=== PATIENT | male | born 2000 | race Caucasian/White ===

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

== ENCOUNTER 2019-03-12 13:17 | Emergency (ER) | payer SELFPAY ==
--- NOTE | 2019-03-12 13:39 | ER ---
Nurse's Notes [facility] Name: Eusebia Harrell Age: 18 yrs Sex: Male : 2000 Arrival Date: 03/12/2019 Time: 13:21 Bed 17 Private MD: None, None Diagnosis: Vomiting, unspecified Presentation: 03/12 13:23 Presenting complaint: Patient states: i started feeling nauseous this morning and hj vomited once; denies abd pain, diarrhea, or constipation; reports, pt was sent home and needs a medical clearance to go back to work;. Transition of care: patient was not received from another setting of care. Onset of symptoms was March 12, 2019. Risk Assessment: Do you want to hurt yourself or someone else? Patient reports no desire to harm self or others. Initial Sepsis Screen: Does the patient meet any 2 criteria? No. Patient's initial sepsis screen is negative. Does the patient have a suspected source of infection? No. Patient's initial sepsis screen is negative. Care prior to arrival: None. 13:23 Method Of Arrival: Ambulatory 13:23 Acuity: JORGE 4 hj Triage Assessment: 13:54 General: Behavior is. ca1 Historical: - Allergies: 13:25 No Known Allergies; hj - PMHx: 13:25 None; hj - PSHx: 13:25 None; hj - Immunization history:: Adult Immunizations up to date. - Family history:: not pertinent. - Social history:: Smoking status: Patient/guardian denies using tobacco. - Ebola Screening: : No symptoms or risks identified at this time. - Hospitalizations: : No recent hospitalization is reported. Screenin:40 Abuse screen: Denies threats or abuse. Denies injuries from another. Nutritional ca1 screening: No deficits noted. Tuberculosis screening: No symptoms or risk factors identified. Fall Risk None identified. Assessment: 13:40 General: Appears in no apparent distress. comfortable. Pain: Denies pain. Neuro: Level ca1 of Consciousness is awake, alert, obeys commands, Oriented to person, place, time, situation. Cardiovascular: Heart tones S1 S2 present Capillary refill < 3 seconds Patient's skin is warm and dry. Respiratory: Airway is patent Respiratory effort is even, unlabored, Respiratory pattern is regular, symmetrical, Breath sounds are clear bilaterally. GI: Abdomen is round non-distended, Bowel sounds present X 4 quads. Abd is soft and non tender X 4 quads. Reports vomiting, once this morning at around 0700. : No deficits noted. No signs and/or symptoms were reported regarding the genitourinary system. EENT: No deficits noted. No signs and/or symptoms were reported regarding the EENT system. Derm: Skin is intact, is healthy with good turgor, Skin is pink, warm \T\ dry. Musculoskeletal: Circulation, motion, and sensation intact. Capillary refill < 3 seconds, Range of motion: intact in all extremities. Vital Signs: 13:25 BP 113 / 57; Pulse 82; Resp 18; Temp 99.3(O); Pulse Ox 100% on R/A; Weight 131.54 kg; hj Height 6 ft. 1 in. (185.42 cm); Pain 0/10; 13:25 Body Mass Index 38.26 (131.54 kg, 185.42 cm) ED Course: 13:21 Patient arrived in ED. dl4 13:22 None, None is Private Physician. dl4 13:25 Triage completed. hj 13:25 Arm band placed on right wrist. hj 13:28 Karson Bush MD is Attending Physician. rn 13:40 Patient has correct armband on for positive identification. Bed in low position. Call ca1 light in reach. Side rails up X 1. Pulse ox on. NIBP on. Warm blanket given. 13:51 Margie Jose RN is Primary Nurse. ca1 13:54 No provider procedures requiring assistance completed. Patient did not have IV access ca1 during this emergency room visit. Administered Medications: No medications were administered Outcome: 13:39 Discharge ordered by . rn 13:54 Discharged to home ambulatory. ca1 13:54 Condition: stable 13:54 Discharge instructions given to patient, Instructed on discharge instructions, follow up and referral plans. Demonstrated understanding of instructions, follow-up care, medications, Prescriptions given X 1. 13:55 Patient left the ED. ca1 Signatures: Karson Bush MD MD rn Joaquin, Henry, RN RN hj Luna, David dl4 Margie Jose RN RN ca1 Corrections: (The following items were deleted from the chart) 13:27 13:25 Pulse 82bpm; Resp 18bpm; Pulse Ox 100% RA; Temp 99.3F Oral; 131.54 kg; Height 6 hj ft. 1 in.; BMI: 38.2; Pain 0/10; hj
--- NOTE | 2019-03-12 13:39 | EDPHYS ---
Physician Documentation [facility] Name: Eusebia Harrell Age: 18 yrs Sex: Male : 2000 Arrival Date: 03/12/2019 Time: 13:21 Bed 17 Private MD: None, None ED Physician Karson Bush HPI: 03/12 13:36 This 18 yrs old Male presents to ER via Ambulatory with complaints of rn Vomiting. 13:36 The patient presents to the emergency department with nausea, vomiting. Onset: The rn symptoms/episode began/occurred this morning. Possible causes: unknown. The symptoms are aggravated by nothing. The symptoms are alleviated by nothing. Severity of symptoms: At their worst the symptoms were mild in the emergency department the symptoms have resolved. The patient has experienced similar episodes in the past. Reports at work, cleared his throat, threw up, told to go home and seek medical clearance. Denies any more nausea/abd pain/diarrhea. No chest pain/sob/syncope/headache/fever. States here just for clearance paperwork and doesn't need anything else. . Historical: - Allergies: 13:25 No Known Allergies; hj - PMHx: 13:25 None; hj - PSHx: 13:25 None; hj - Immunization history:: Adult Immunizations up to date. - Family history:: not pertinent. - Social history:: Smoking status: Patient/guardian denies using tobacco. - Ebola Screening: : No symptoms or risks identified at this time. - Hospitalizations: : No recent hospitalization is reported. ROS: 13:36 Constitutional: Negative for fever, chills, and weight loss, Eyes: Negative for injury, rn pain, redness, and discharge, Neck: Negative for injury, pain, and swelling, Cardiovascular: Negative for chest pain, palpitations, and edema, Respiratory: Negative for shortness of breath, cough, wheezing, and pleuritic chest pain, Abdomen/GI: Negative for abdominal pain, diarrhea, and constipation, MS/Extremity: Negative for injury and deformity, Skin: Negative for injury, rash, and discoloration, Neuro: Negative for headache, weakness, numbness, tingling, and seizure. Exam: 13:36 Constitutional: This is a well developed, well nourished patient who is awake, alert, rn and in no acute distress. Head/Face: Normocephalic, atraumatic. Eyes: Pupils equal round and reactive to light, extra-ocular motions intact. Lids and lashes normal. Conjunctiva and sclera are non-icteric and not injected. Cornea within normal limits. Periorbital areas with no swelling, redness, or edema. ENT: MMM Neck: Trachea midline, no thyromegaly or masses palpated, and no cervical lymphadenopathy. Supple, full range of motion without nuchal rigidity, or vertebral point tenderness. No Meningismus. Abdomen/GI: soft, non-tender, no guarding or masses Skin: Warm, dry with normal turgor. Normal color with no rashes, no lesions, and no evidence of cellulitis. MS/ Extremity: Pulses equal, no cyanosis. Neurovascular intact. Full, normal range of motion. Equal circumference. Neuro: Awake and alert, GCS 15, oriented to person, place, time, and situation. Cranial nerves II-XII grossly intact. Motor strength 5/5 in all extremities. Sensory grossly intact. Cerebellar exam normal. Normal gait. Vital Signs: 13:25 BP 113 / 57; Pulse 82; Resp 18; Temp 99.3(O); Pulse Ox 100% on R/A; Weight 131.54 kg; hj Height 6 ft. 1 in. (185.42 cm); Pain 0/10; 13:25 Body Mass Index 38.26 (131.54 kg, 185.42 cm) hj MDM: 13:28 Patient medically screened. rn 13:36 Differential diagnosis: viral gastroenteritis, gastroenteritis. Data reviewed: vital rn signs, nurses notes, and as a result, I will discharge patient. Counseling: I had a detailed discussion with the patient and/or guardian regarding: the historical points, exam findings, and any diagnostic results supporting the discharge/admit diagnosis, the need for outpatient follow up, to return to the emergency department if symptoms worsen or persist or if there are any questions or concerns that arise at home. Special discussion: I discussed with the patient/guardian in detail that at this point there is no indication for admission to the hospital. It is understood, however, that if the symptoms persist or worsen the patient needs to return immediately for re-evaluation. Administered Medications: No medications were administered Disposition: 03/12/19 13:39 Discharged to Home. Impression: Vomiting, unspecified. - Condition is Stable. - Discharge Instructions: Nausea and Vomiting, Adult, [id number]. - Prescriptions for Zofran ODT 4 mg Oral tablet,disintegrating - place 1 tablet by TRANSLINGUAL route every 8 hours As needed; 20 tablet. - Work release form, Medication Reconciliation Form, Thank You Letter, Antibiotic Education, Prescription Opioid Use form. - Follow up: Private Physician; When: As needed; Reason: Recheck today's complaints, Re-evaluation by your physician. - Problem is new. - Symptoms have improved. Signatures: Karson Bush MD MD rn Joaquin, Henry, RN RN hj Margie Jose RN RN ca1 Corrections: (The following items were deleted from the chart) 13:55 13:39 03/12/2019 13:39 Discharged to Home. Impression: Vomiting, unspecified. Condition ca1 is Stable. Forms are Medication Reconciliation Form, Thank You Letter, Antibiotic Education, Prescription Opioid Use. Follow up: Private Physician; When: As needed; Reason: Recheck today's complaints, Re-evaluation by your physician. Problem is new. Symptoms have improved. rn
== END 2019-03-12 13:55 | disposition home or self-care (01) ==
LOC: ER 13:17
DX: R11.10 Vomiting, unspecified (principal)
CPT/HCPCS: 99283

== ENCOUNTER 2021-05-01 12:57 | Emergency (ER) | payer OTHER, SELFPAY ==
--- NOTE | 2021-05-01 14:16 | ER ---
Nurse's Notes [facility] Name: Esa Harrell Age: 20 yrs Sex: Male : 2000 Arrival Date: 05/01/2021 Time: 13:03 Bed Waiting Private MD: Diagnosis: Low back pain Presentation: 05/01 14:11 Chief complaint: Patient states: Pt reports previous back injury 3 hrs ago, flare up lm7 since Tuesday. Reports a lot of bending and lifting at work. Coronavirus screen: Client denies travel out of the [place] in the last 14 days. At this time, the client does not indicate any symptoms associated with coronavirus-19. Ebola Screen: Patient negative for fever greater than or equal to 101.5 degrees Fahrenheit, and additional compatible Ebola Virus Disease symptoms Patient denies exposure to infectious person. Patient denies travel to an Ebola-affected area in the 21 days before illness onset. Initial Sepsis Screen: Does the patient meet any 2 criteria? No. Patient's initial sepsis screen is negative. Does the patient have a suspected source of infection? No. Patient's initial sepsis screen is negative. Risk Assessment: Do you want to hurt yourself or someone else? Patient reports no desire to harm self or others. Onset of symptoms was April 28, 2021. 14:11 Method Of Arrival: Ambulatory lm7 14:11 Acuity: JORGE 5 lm7 Triage Assessment: 14:15 General: Appears in no apparent distress. Behavior is calm, cooperative. Pain: lm7 Complains of pain in lower back. Musculoskeletal: No deficits noted. Circulation, motion, and sensation intact. Capillary refill < 3 seconds, Range of motion: intact in all extremities. Historical: - Allergies: 14:15 No Known Allergies; lm7 - Home Meds: 14:15 None [Active]; lm7 - PMHx: 14:15 None; lm7 - Immunization history:: Client reports having NOT received the Covid vaccine. - Social history:: Smoking status: Patient denies any tobacco usage or history of. Screenin:16 Abuse screen: Denies threats or abuse. Denies injuries from another. Nutritional lm7 screening: No deficits noted. Tuberculosis screening: No symptoms or risk factors identified. Fall Risk None identified. Assessment: 14:16 General: Appears in no apparent distress. Pain: Complains of pain in LBP Pain currently lm7 is 8 out of 10 on a pain scale. Neuro: No deficits noted. Vital Signs: 14:11 BP 134 / 70; Pulse 67; Resp 16; Temp 97.9; Pulse Ox 100% ; Weight 110.68 kg; Height 6 lm7 ft. (182.88 cm); Pain 8/10; 14:11 Body Mass Index 33.09 (110.68 kg, 182.88 cm) lm7 ED Course: 13:03 Patient arrived in ED. ds1 14:14 [facility] Ruiz [facility]C [facility] kb 14:14 Ernie Mccollum MD is Attending Physician. kb 14:15 Triage completed. lm7 14:15 Arm band placed on left wrist. lm7 14:16 No provider procedures requiring assistance completed. Patient did not have IV access lm7 during this emergency room visit. 14:17 na. lm7 Administered Medications: No medications were administered Outcome: 14:15 Discharge ordered by MD. kb 14:16 Discharged to home ambulatory. lm7 14:16 Condition: good 14:16 Discharge instructions given to patient, family. 14:17 Patient left the ED. lm7 Signatures: Whit Ruiz FNP-C APPLICATION INTEGRATION ARCHITECT-Pao Wynn ds1 Maureen Talbot lm7
--- NOTE | 2021-05-01 14:16 | EDPHYS ---
Physician Documentation [facility] Name: Esa Harrell Age: 20 yrs Sex: Male : 2000 Arrival Date: 05/01/2021 Time: 13:03 Bed Waiting Private MD: ED Physician Ernie Mccollum HPI: 05/01 15:03 This 20 yrs old Male presents to ER via Ambulatory with complaints of Back kb Pain. 15:03 The patient presents with pain that is chronic. The symptoms are located in the low kb back. Onset: The symptoms/episode began/occurred 3 year(s) ago, and became worse 2 day(s) ago. The patient has not experienced similar symptoms in the past. 15:11 The pain does not radiate. Associated signs and symptoms: The patient has no apparent kb associated signs or symptoms. The problem was sustained from a chronic condition. Modifying factors: The patient symptoms are alleviated by nothing, the patient symptoms are aggravated by any movement. Severity of symptoms: At their worst the symptoms were moderate, in the emergency department the symptoms are unchanged. The patient has not recently seen a physician. Patient states he twisted to pop his back 3 years ago and had some pain. States since then he has had intermittent pain to lower back. Came in today to get it checked out because he wants to join the . Denies any urinary complaints, incontinence, radiation of pain.. Historical: - Allergies: 14:15 No Known Allergies; lm7 - Home Meds: 14:15 None [Active]; lm7 - PMHx: 14:15 None; lm7 - Immunization history:: Client reports having NOT received the Covid vaccine. - Social history:: Smoking status: Patient denies any tobacco usage or history of. ROS: 15:13 Constitutional: Negative for fever, chills, and weight loss. kb 15:13 Back: Positive for pain at rest, pain with movement, of the low back area. 15:13 All other systems are negative. Exam: 15:13 Constitutional: This is a well developed, well nourished patient who is awake, alert, kb and in no acute distress. Head/Face: Normocephalic, atraumatic. ENT: Moist Mucous membranes Cardiovascular: Regular rate and rhythm with a normal S1 and S2. No gallops, murmurs, or rubs. No pulse deficits. Respiratory: Respirations even and unlabored. No increased work of breathing, no retractions or nasal flaring. Skin: Warm, dry with normal turgor. Normal color. MS/ Extremity: Pulses equal, no cyanosis. Neurovascular intact. Full, normal range of motion. Neuro: Awake and alert, GCS 15, oriented to person, place, time, and situation. Moves all extremities. Normal gait. Psych: Awake, alert, with orientation to person, place and time. Behavior, mood, and affect are within normal limits. 15:13 Back: pain, that is mild, of the low back area, ROM is normal, normal spinal alignment noted, CVA tenderness, is absent. 15:14 Neuro: Exam negative for acute changes. kb Vital Signs: 14:11 BP 134 / 70; Pulse 67; Resp 16; Temp 97.9; Pulse Ox 100% ; Weight 110.68 kg; Height 6 lm7 ft. (182.88 cm); Pain 8/10; 14:11 Body Mass Index 33.09 (110.68 kg, 182.88 cm) lm7 MDM: 14:14 Patient medically screened. kb 15:02 Data reviewed: vital signs, nurses notes. Data interpreted: Pulse oximetry: on room air kb is 100 %. Interpretation: normal. Counseling: I had a detailed discussion with the patient and/or guardian regarding: the historical points, exam findings, and any diagnostic results supporting the discharge/admit diagnosis, the need for outpatient follow up, a family practitioner, to return to the emergency department if symptoms worsen or persist or if there are any questions or concerns that arise at home. Administered Medications: No medications were administered Disposition Summary: 05/01/21 14:15 Discharge Ordered Location: Home kb Condition: Stable kb Diagnosis - Low back pain kb Followup: kb - With: Emergency Department - When: As needed - Reason: Worsening of condition Followup: kb - With: Private Physician - When: 2 - 3 days - Reason: Recheck today's complaints, Continuance of care, Re-evaluation by your physician Discharge Instructions: - Discharge Summary Sheet kb - Back Injury Prevention, [id number] kb - Chronic Back Pain, [id number] kb - Back Exercises, [id number] kb Forms: - Medication Reconciliation Form kb - Thank You Letter kb - Antibiotic Education kb - Prescription Opioid Use kb Prescriptions: - Cyclobenzaprine 10 mg Oral Tablet - take 1 tablet by ORAL route every 8 hours As needed; 21 tablet; Refills: 0, kb Product Selection Permitted - Diclofenac Sodium 75 mg Oral tablet,delayed release (DR/EC) - take 1 tablet by ORAL route 2 times per day As needed; 30 tablet; Refills: 0, kb Product Selection Permitted Addendum: 05/04/2021 07:07 Co-signature as Attending Physician, Ernie Mccollum MD I agree with the assessment and k dr plan of care. Signatures: Whit Ruiz, CASTING ROOM HELPER-C CASTING ROOM HELPER-Ckb Ernie Mccollum MD MD [facility] Maureen Talbot lm
[2021-05-01 14:24] VITALS: BP 134/70; TEMP 97.9; O2SAT 100
== END 2021-05-01 14:17 | disposition home or self-care (01) ==
LOC: ER 12:57
DX: M54.5 Low back pain (principal)
CPT/HCPCS: 99281